=== PATIENT | male | born 1975 | race Caucasian/White ===

== ENCOUNTER 2017-12-24 00:52 | Emergency (ER) | payer BC, OTHER ==
[~2017-12-24] VITALS: Ht 180.3 cm; Wt 93.0 kg
[2017-12-24 01:08] VITALS: BP 132/73
== END 2017-12-24 01:34 ==
LOC: ER 00:52
DX: S30.811A Abrasion of abdominal wall, initial encounter (principal); G89.29 Other chronic pain; Z90.49 Acquired absence of other specified parts of digestive tract; Z98.890 Other specified postprocedural states; V43.52XA Car driver injured in collision with other type car in traffic accident, initial encounter; Y93.89 Activity, other specified; Y92.481 Parking lot as the place of occurrence of the external cause; Y99.8 Other external cause status
CPT/HCPCS: 99283

== ENCOUNTER 2018-07-30 08:47 | Emergency (ER) | payer BC ==
[~2018-07-30] VITALS: Ht 182.9 cm; Wt 101.3 kg
[2018-07-30 08:48] VITALS: BP 150/92
[2018-07-30] MEDS ORDERED: ketorolac trometh inj. 60 MG/2 ML VIAL IM ONE (10:15)
[2018-07-30] MEDS ORDERED: CYCL-1 PO (10:17)
[2018-07-30] MEDS ORDERED: HYDR-4383 PO (10:17)
== END 2018-07-30 10:37 | disposition home or self-care (01) ==
LOC: ER 08:48
DX: R07.81 Pleurodynia (principal); M54.9 Dorsalgia, unspecified; G89.29 Other chronic pain; F10.10 Alcohol abuse, uncomplicated; Z90.49 Acquired absence of other specified parts of digestive tract; V89.9XXA Person injured in unspecified vehicle accident, initial encounter; Y93.89 Activity, other specified; Y92.89 Other specified places as the place of occurrence of the external cause; Y99.8 Other external cause status
CPT/HCPCS: 72074; 72110; 96372; 99284; J1885

== ENCOUNTER 2018-08-06 09:10 | Emergency (ER) | payer BC ==
[~2018-08-06] VITALS: Ht 182.9 cm; Wt 101.7 kg
[~2018-08-06 09:10] MED LIST: CYCL-1 PO; HYDR-4383 PO
[2018-08-06 09:24] VITALS: BP 122/95
[2018-08-06] MEDS ORDERED: rabies immune globulin/PF 150 unit/ml inj IMVAC STA (12:33)
[2018-08-06] MEDS ORDERED: rabies vaccine (PCEC)/PF 2.5 unit kit IM ONE (12:35)
[2018-08-06] MEDS ORDERED: TETanus/Pertussis (Acell)/Diphther VAC/PF (Tdap-Adult) 0.5ml syringe IM ONE (12:35)
[2018-08-06] MEDS ORDERED: SULF1TAB49 PO (12:52)
[2018-08-06] MEDS ORDERED: AMOX-422 PO (12:52)
== END 2018-08-06 13:47 | disposition home or self-care (01) ==
LOC: ER 09:11
DX: S61.452A Open bite of left hand, initial encounter (principal); S61.432A Puncture wound without foreign body of left hand, initial encounter; L01.00 Impetigo, unspecified; G89.29 Other chronic pain; Z90.49 Acquired absence of other specified parts of digestive tract; Z98.890 Other specified postprocedural states; W55.01XA Bitten by cat, initial encounter; Y93.89 Activity, other specified; Y92.89 Other specified places as the place of occurrence of the external cause; Y99.8 Other external cause status
CPT/HCPCS: 90375; 90471; 90472; 90675; 90715; 96372; 99283

== ENCOUNTER 2022-06-24 18:46 | Inpatient (IN) | payer BC, OTHER ==
[~2022-06-24] VITALS: Ht 182.9 cm; Wt 86.4 kg
[2022-06-24 19:08] LABS: BASOPHILS # (AUTO) 0.1 X10'3 (0-0.2); BASOPHILS % (AUTO) 0.8 % (0-1); EOSINOPHILS # (AUTO) 0.1 X10'3 (0-0.9); EOSINOPHILS % (AUTO) 0.9 % (0-6); HEMATOCRIT 47.7 % (42.0-52.0); HEMOGLOBIN 16.2 g/dl (14.0-17.9); LYMPHOCYTES # (AUTO) 3.2 X10'3 (1.1-4.8); LYMPHOCYTES % (AUTO) 32.9 % (21-51); MEAN CORPUSCULAR HEMOGLOBIN 34.1 PG (27.0-31.0); MEAN CORPUSCULAR HGB CONC 33.9 g/dL (33.0-36.5); MEAN CORPUSCULAR VOLUME 100.4 FL (78-98); MEAN PLATELET VOLUME 7.9 FL (7.4-10.4); MONOCYTES # (AUTO) 0.9 X10'3 (0-0.9); MONOCYTES % (AUTO) 8.6 % (2-12); NEUTROPHILS # (AUTO) 5.6 X10'3 (1.8-7.7); NEUTROPHILS % (AUTO) 56.8 % (42-75); PLATELET COUNT 202 X10'3 (140-440); RED BLOOD COUNT 4.75 X10'6 (4.70-6.10); RED CELL DISTRIBUTION WIDTH 14.1 % (11.5-14.5); WHITE BLOOD COUNT 9.9 X10'3 (4.5-11.0)
[2022-06-24 19:28] LABS: ALANINE AMINOTRANSFERASE 109 U/L (12-78); ALBUMIN 3.8 G/DL (3.4-5.0); ALKALINE PHOSPHATASE 76 IU/L (46-116); ANION GAP 10 (8-16); ASPARTATE AMINO TRANSFERASE 89 U/L (10-37); BILIRUBIN,TOTAL 0.7 MG/DL (0.1-1.0); BLOOD UREA NITROGEN 7 MG/DL (7-18); BUN/CREATININE RATIO 8.2 (5.4-32.0); CALCIUM 8.9 MG/DL (8.5-10.1); CHLORIDE 98 MMOL/L (99-107); CREATININE 0.85 MG/DL (0.60-1.10); ETHANOL 0.199 GM/DL (0.0-0.010); GLUCOSE 81 MG/DL (70-104); MAGNESIUM 2.3 MG/DL (1.5-2.4); POTASSIUM 4.2 MMOL/L (3.5-5.1); SODIUM 135 MMOL/L (135-145); TOTAL CARBON DIOXIDE 26.9 MMOL/L (24-32); TOTAL PROTEIN 7.8 G/DL (6.4-8.2); eGFR > 90 ML/MIN
[2022-06-24 21:57] LABS: URINE AMPHETAMINE SCREEN NEGATIVE (Neg); URINE BARBITUATE SCREEN NEGATIVE (Neg); URINE BENZODIAZEPINES SCREEN NEGATIVE (Neg); URINE CANNABINOID SCREEN NEGATIVE (Neg); URINE COCAINE SCREEN NEGATIVE (Neg); URINE METHADONE SCREEN NEGATIVE (Neg); URINE OPIATE SCREEN NEGATIVE (Neg); URINE PHENCYCLIDINE SCREEN NEGATIVE (Neg)
[2022-06-25] MEDS ORDERED: aspirin 81mg tab.chew PO ONE (02:00)
[2022-06-25] MEDS ORDERED: diphenhydrAMINE 50 mg/ml inj IV PRN (02:45)
[2022-06-25] MEDS ORDERED: acetaminophen 325mg tablet PO PRN ×2 (02:45)
[2022-06-25] MEDS ORDERED: LORazepam 2 mg/ml vial IV PRN (02:45)
[2022-06-25] MEDS: dextrose 5%-1/2 normal saline 1,000 ML IV SCH ×2 (02:45→07:31)
[2022-06-25] MEDS ORDERED: dextrose 50%-water 50ml dispensing syringe IV PRN (02:45)
[2022-06-25] MEDS ORDERED: bisacodyl 10mg suppository rectal RC PRN (02:45)
[2022-06-25] MEDS ORDERED: ondansetron 4mg rapidly disintigrating tab PO PRN (02:45)
[2022-06-25] MEDS ORDERED: magnesium hydroxide 30ml (MOM) UD suspension PO PRN (02:45)
[2022-06-25] MEDS ORDERED: haloperidol 5mg tablet PO PRN (02:45)
[2022-06-25] MEDS ORDERED: HYDROcodone/acetaminophen 5mg/325mg tablet PO PRN (02:45)
[2022-06-25] MEDS ORDERED: haloperidol lactate 5mg/ml inj IM PRN (02:45)
[2022-06-25] MEDS ORDERED: mag hydrox/Alum hydrox/simeth 30ml oral suspension PO PRN (02:45)
[2022-06-25] MEDS ORDERED: acetaminophen 650mg rectal suppository RC PRN (02:45)
[2022-06-25] MEDS ORDERED: morphine 2 MG/ML inj. syringe IV PRN (02:45)
[2022-06-25] MEDS ORDERED: diphenhydrAMINE 25mg capsule PO PRN (02:45)
[2022-06-25] MEDS ORDERED: ondansetron/PF 4mg/2ml inj IV PRN (02:45)
[2022-06-25 02:47] LABS: ETHANOL 0.042 GM/DL (0.0-0.010)
[2022-06-25 03:20] LABS: LIPASE 154 U/L (73-393); MAGNESIUM 2.3 MG/DL (1.5-2.4)
[2022-06-25 03:21] LABS: HEMOGLOBIN A1C 5.6 % (4.5-6.2)
[2022-06-25 03:21] LABS: CREATINE KINASE 165 U/L (39-308); PHOSPHORUS 3.6 MG/DL (2.3-4.5)
[2022-06-25 03:25] LABS: APTT 28 SECONDS (22-32); D-DIMER 0.64 MG/L FEU (0-0.50)
[2022-06-25 07:11] LABS: CLARITY,URINE CLEAR (Clear); COLOR,URINE YELLOW (Yellow); GLUCOSE, URINE NEGATIVE (Neg); KETONES,URINE 15 mg/dl (Neg); LEUKOCYTE ESTERASE ,URINE NEGATIVE (Neg); NITRITES, URINE NEGATIVE (Neg); OCCULT BLOOD,URINE NEGATIVE (Neg); PH,URINE 6.5 (4.8-8.0); PROTEIN,URINE NEGATIVE (Neg); UROBILINOGEN,URINE 0.2 E.U/dL (0.2-1.0)
[2022-06-25] MEDS: thiamine 100mg/ml 2ml inj. IV SCH ×2 (07:14→15:19)
[2022-06-25 07:20] LABS: UA COLLECTION TYPE CLN CATCH MIDSTREAM
[2022-06-25] MEDS ORDERED: pantoprazole 40mg Tablet.DR PO SCH (07:30)
[2022-06-25] MEDS ORDERED: aspirin 81mg, enteric-coated 1 TAB TABLET.DR PO SCH (08:00)
[2022-06-25] MEDS ORDERED: folic acid 1mg/0.2ml inj IV SCH (08:00)
[2022-06-25] MEDS ORDERED: heparin, porcine 5000 units/ml vial SQ SCH (08:00)
[2022-06-25] MEDS ORDERED: docusate sod 100mg capsule PO SCH (08:00)
[2022-06-25] MEDS ORDERED: atorvastatin 20mg tablet PO SCH (08:00)
[2022-06-25] MEDS ORDERED: clopidogrel 75mg tablet PO SCH ×2 (08:00)
--- NOTE | 2022-06-25 10:24 | NUR ---
Received order for consult. Met with patient in regards to alcohol use and to see if patient was interested in resources for treatment options. Patient has been trying to find an inpatient rehab for two months now. Having a hard time finding a place that takes his insurance. I gave him a list of resources. I talked to him about medication that will help with cravings. Patient has my card if he needs anymore assistance.
[2022-06-25 11:53] VITALS: BP 124/84
[2022-06-25] MEDS ORDERED: LURA80TA2 PO (12:01)
[2022-06-25] MEDS ORDERED: ASPI-1071 PO (16:41)
[2022-06-25] MEDS ORDERED: NALT50TA PO (16:41)
[2022-06-25] MEDS ORDERED: CLOP75TA34 PO (16:41)
[2022-06-25] MEDS ORDERED: thiamine tablet PO (16:41)
[2022-06-25] MEDS ORDERED: FOLI1TAB27 PO (16:41)
[2022-06-25] MEDS ORDERED: MULT-1074 PO (16:41)
[2022-06-25] MEDS ORDERED: temazepam 15mg capsule PO PRN (21:00)
[2022-06-27] MEDS ORDERED: LORazepam 2 mg/ml vial IV PRN (02:45)
[2022-06-27] MEDS ORDERED: LORazepam 1 MG tablet PO PRN (02:45)
[2022-06-29] MEDS ORDERED: LORazepam 2 mg/ml vial IV PRN (02:45)
[2022-06-29] MEDS ORDERED: LORazepam 1 MG tablet PO PRN (02:45)
[2022-06-29] MEDS ORDERED: folic acid 1mg tablet PO SCH (08:00)
[2022-06-29] MEDS ORDERED: thiamine 100mg tablet PO SCH (08:00)
== END 2022-06-25 17:00 | disposition home or self-care (01) | DRG 69 ==
LOC: ER 18:48 → ED HOLD 06-25 02:49
PROVIDERS: ADMIT Family Medicine; ATTEND Family Medicine
DX: G45.9 Transient cerebral ischemic attack, unspecified (principal); F10.239 Alcohol dependence with withdrawal, unspecified; F10.229 Alcohol dependence with intoxication, unspecified; F17.210 Nicotine dependence, cigarettes, uncomplicated; F20.9 Schizophrenia, unspecified; W18.39XA Other fall on same level, initial encounter; F31.9 Bipolar disorder, unspecified; G89.4 Chronic pain syndrome; I10 Essential (primary) hypertension; M54.9 Dorsalgia, unspecified; J44.9 Chronic obstructive pulmonary disease, unspecified; R29.6 Repeated falls; Z86.73 Personal history of transient ischemic attack (TIA), and cerebral infarction without residual deficits; Z79.899 Other long term (current) drug therapy; Y93.89 Activity, other specified; Y99.8 Other external cause status; Y92.098 Other place in other non-institutional residence as the place of occurrence of the external cause
CPT/HCPCS: 36415; 70450; 70544; 70547; 70551; 72128; 72131; 80053; 80305; 80320; 81003; 82140; 82550; 82948; 83036; 83690; 83735; 83880; 84100; 84443; 84484; 85025; 85379; 85610; 85730; 92508; 92616; 93005; 93306; 99285; G0378; J3411; J3490; J7042

== ENCOUNTER 2022-12-08 11:19 | Emergency (ER) | payer BC, OTHER ==
[~2022-12-08] VITALS: Ht 182.9 cm; Wt 92.6 kg
[~2022-12-08 11:19] MED LIST changes: +ASPI-1071 PO; +CLOP75TA34 PO; -CYCL-1 PO; +FOLI1TAB27 PO; -HYDR-4383 PO; +LURA80TA2 PO; +MULT-1074 PO; +NALT50TA PO; +thiamine tablet PO
[2022-12-08 11:47] VITALS: BP 150/97
--- NOTE | 2022-12-08 12:53 | NUR ---
Pt states he is trying to stop drinking alcohol and that on Sat he had a seizure and split that back of his head open. Pt has 6 david. Pt bit the L side of his tounge. Pt placed on telemetry monitor.
[2022-12-08] MEDS ORDERED: LORazepam 1 MG tablet PO ONE (13:05)
[2022-12-08] MEDS ORDERED: GABA-530 PO (13:14)
[2022-12-08] MEDS ORDERED: LORA-269 PO (13:14)
--- NOTE | 2022-12-08 13:35 | NUR ---
Received order for consult. Met with patient in regards to alcohol use and patient is interested in resources for treatment options. Patient has been going to meetings but having a hard time finding a place to take his insurance for inpatient. I gave patient some resources and my card to call me with any questions.
--- NOTE | 2022-12-08 15:01 | NUR ---
REVIEWED [employer] [facility]'S GENERAL ASSESSMENT AND AGREE WITH HER ASSESSMENT.
== END 2022-12-08 13:44 | disposition home or self-care (01) ==
LOC: ER 11:19
DX: F10.10 Alcohol abuse, uncomplicated (principal); J44.9 Chronic obstructive pulmonary disease, unspecified; F31.9 Bipolar disorder, unspecified; G89.29 Other chronic pain; F20.9 Schizophrenia, unspecified; Z90.49 Acquired absence of other specified parts of digestive tract; Z79.899 Other long term (current) drug therapy; Z56.0 Unemployment, unspecified; Y90.9 Presence of alcohol in blood, level not specified
CPT/HCPCS: 99284